=== PATIENT | female | born 1985 | race African-American/Black ===

== ENCOUNTER 2017-07-20 03:00 | Emergency (ER) | payer BC ==
[~2017-07-20] VITALS: Ht 160 cm; Wt 128.4 kg
[~2017-07-20 03:00] MED LIST: AUGMENTIN875 MG PO; BENTYL20 MG PO; CIPRO500 MG PO; CLEOCIN300 MG PO; LEXAPRO10 MG PO; LORTAB 5-325 M1 EACH PO; MOTRIN600 MG PO; MOTRIN800 MG PO; NAPROSYN500 MG PO; ROBITUSSIN AC,T10 ML PO; TYLENOL WITH C1 EACH PO; VICODIN,LORT1 TABLET PO; ZOFRAN ODT4 MG PO; ZOFRAN4 MG PO
[2017-07-20 03:38] LABS: HEMATOCRIT 39.7 % (36.0-46.0); HEMOGLOBIN 12.4 G/DL (11.9-15.5); MCH 28.6 PG (29.0-34.0); MCHC 31.2 G/DL (30.0-36.0); MCV 91.5 FL (83-99); PLATELET COUNT 274 K/uL (156-360); RBC DIS.WIDTH-CV 13.8 % (11.8-14.6); RBC DIS.WIDTH-SD 46.4 % (39-53); RED BLOOD COUNT 4.34 M/uL (3.80-5.20); WHITE BLOOD COUNT 9.1 K/uL (4.1-10.2)
[2017-07-20 03:50] LABS: CHLORIDE 110 mEq/L (99-109); POTASSIUM 3.7 mEq/L (3.7-5.4); SODIUM 143 mEq/L (136-147)
[2017-07-20 03:52] LABS: GLUCOSE 115 mg/dL (70-99)
[2017-07-20 03:56] LABS: CREATININE 0.8 mg/dL (0.6-1.3); GFR ESTIMATE (CALCULATED) > 59 mL/min/
[2017-07-20 03:57] LABS: UREA NITROGEN (BUN) 19 mg/dL (9-23)
[2017-07-20] MEDS ORDERED: MECLIZINE HCL25 MG PO (04:08)
[2017-07-20 04:23] VITALS: BP 127/87
== END 2017-07-20 04:24 | disposition home or self-care (01) ==
LOC: EME 03:00
PROVIDERS: Emergency Medicine
DX: H81.399 Other peripheral vertigo, unspecified ear (principal); F17.200 Nicotine dependence, unspecified, uncomplicated
CPT/HCPCS: 80048; 85027; 99281; 99285; J7030

== ENCOUNTER 2017-09-23 06:56 | Emergency (ER) | payer BC ==
[~2017-09-23] VITALS: Ht 160 cm; Wt 125.4 kg
[~2017-09-23 06:56] MED LIST changes: +MECLIZINE HCL25 MG PO
[2017-09-23 07:31] LABS: BASOPHIL (%) 0.3 % (0-1); EOSINOPHIL (%) 0.6 % (0-5); EOSINOPHIL COUNT 0.1 K/uL (0-0.3); HEMATOCRIT 40.7 % (36.0-46.0); IMMATURE GRANULOCYTE (%) 0.3 % (0.0-0.7); LYMPHOCYTE (%) 26.1 % (15-42); LYMPHOCYTE COUNT 2.6 K/uL (1.0-2.8); MCH 29.3 PG (29.0-34.0); MCHC 31.9 G/DL (30.0-36.0); MCV 91.7 FL (83-99); MONOCYTE COUNT 0.7 K/uL (0-0.8); NEUTROPHIL (%) 65.7 % (45-76); NEUTROPHIL COUNT 6.5 K/uL (1.8-6.4); PLATELET COUNT 248 K/uL (156-360); RBC DIS.WIDTH-CV 13.6 % (11.8-14.6); RBC DIS.WIDTH-SD 45.8 % (39-53); RED BLOOD COUNT 4.44 M/uL (3.80-5.20); WHITE BLOOD COUNT 9.9 K/uL (4.1-10.2)
[2017-09-23 07:46] LABS: CHLORIDE 107 mEq/L (99-109); POTASSIUM 3.8 mEq/L (3.7-5.4); SODIUM 141 mEq/L (136-147)
[2017-09-23 07:48] LABS: GLUCOSE 100 mg/dL (70-99)
[2017-09-23 07:52] LABS: CREATININE 0.7 mg/dL (0.6-1.3); GFR ESTIMATE (CALCULATED) > 59 mL/min/
[2017-09-23 07:53] LABS: UREA NITROGEN (BUN) 14 mg/dL (9-23)
[2017-09-23 07:55] LABS: QUANTITATIVE HCG < 4.0 MIU/ML
[2017-09-23 07:59] LABS: SOURCE URINE
[2017-09-23 08:03] LABS: APPEARANCE CLEAR ((CLEAR)); BILIRUBIN NEGATIVE; BLOOD NEGATIVE; COLOR YELLOW ((YELLOW)); GLUCOSE (STRIP) NEGATIVE; KETONES NEGATIVE; LEUKOCYTES NEGATIVE; NITRITE NEGATIVE; PROTEIN (STRIP) NEGATIVE; SPECIFIC GRAVITY 1.025 (1.000-1.030); UROBILINOGEN 0.2 MG/DL (0.2-1.0)
[2017-09-23] MEDS ORDERED: MOTRIN800 MG PO (09:22)
[2017-09-23 10:16] VITALS: BP 116/83
[2017-09-25 14:25] LABS: CHLAMYDIA TRACHOMATIS NEGATIVE; NEISSERIA GONORRHOEAE NEGATIVE
== END 2017-09-23 10:20 | disposition left against medical advice (07) ==
LOC: EME 06:56
PROVIDERS: Emergency Medicine
DX: R10.30 Lower abdominal pain, unspecified (principal); N89.8 Other specified noninflammatory disorders of vagina; R11.0 Nausea; Z11.3 Encounter for screening for infections with a predominantly sexual mode of transmission; Z90.721 Acquired absence of ovaries, unilateral; Z72.0 Tobacco use; Z53.20 Procedure and treatment not carried out because of patient's decision for unspecified reasons
CPT/HCPCS: 80048; 81003; 84702; 85025; 87491; 87591; 99281; 99284